=== PATIENT | male | born 1950 ===

== ENCOUNTER 2016-10-04 09:23 | Outpatient (CLI) | payer MEDICARE ==
--- NOTE | 2016-10-04 13:06 | Cat Scan Report ---
CT scan of chest with IV contrast: History: Cough. Findings: No endobronchial lesion identified. There is mediastinal lymph nodes noted however do not appear enlarged. Minimal thickening of the wall of the distal esophagus suspected small sliding hiatal hernia. No pleural or pericardial effusion. 1 cm circumscribed nodule identified at the left upper lobe series 2 image 18. Subpleural small 4 mm nodules are identified anteriorly in series 2 image 18. 5 mm nodule identified at the left lung measuring faint airspace opacities are noted at the right upper lobe suggestive of pneumonitis. 1.1 cm nodule is identified at right lobe series 2 image 109. 4 mm nodule is identified right lower lobe series 2 image 124. Several tiny nodules also noted in the lung parenchyma. Impression: Multiple nodules bilaterally appear noncalcified and probably suggestive of granulomas. Infiltrate right upper lobe suggestive of pneumonitis. Followup may be recommended.
== END 2016-10-04 09:24 | disposition home or self-care (01) ==
LOC: SPVIMAG 09:23
PROVIDERS: ATTEND Internal Medicine
DX: R91.1 Solitary pulmonary nodule (principal); R05 Cough; K44.9 Diaphragmatic hernia without obstruction or gangrene; R91.8 Other nonspecific abnormal finding of lung field
CPT/HCPCS: 71260; Q9967